=== PATIENT | female | born 2000 | race Caucasian/White ===

== ENCOUNTER 2021-05-29 16:36 | Emergency (ER) | payer BC ==
[~2021-05-29] VITALS: Ht 175.3 cm; Wt 113.6 kg
[2021-05-29 17:02] VITALS: BP 153/96; TEMP 99.1
[2021-05-29 17:38] VITALS: PULSE 84
== END 2021-05-29 17:39 | disposition home or self-care (01) ==
LOC: COL.ER 16:36
DX: S60.031A Contusion of right middle finger without damage to nail, initial encounter (principal); X58.XXXA Exposure to other specified factors, initial encounter